=== PATIENT | male | born 1965 | race American Indian/Alaskan Native ===

== ENCOUNTER 2019-07-25 07:26 | Emergency (ER) | payer OTHER ==
[2019-07-25 07:33] VITALS: BP 131/91
[2019-07-25] MEDS ORDERED: ACETAMINOPHEN 500 MG TAB PO ONE (08:46)
--- NOTE | 2019-07-25 08:58 | Emergency Department Report ---
ED Head Trauma HPI - General Chief complaint: Head Injury Stated complaint: HEAD INJURY Time Seen by Provider: 07/25/19 08:35 Source: patient Mode of arrival: Ambulatory Limitations: No Limitations - History of Present Illness Initial comments: This is a 54-year-old male nontoxic, well nourished in appearance, no acute signs of distress presents to the ED with c/o of acute headache and neck pain x3 days. Patient stated that 3 days ago while he was working a heavy wall panel fell on his occipital lobe area. Patient denies any loss of consciousness. Patient stated also has slight dizziness. Patient describes headache as diffuse with level of 8 out of 10. Relieved with Aleve but comes back. Patient denies thunderclap headache. Patient denies any radiation of pain. Patient denies any visual changes. Patient denies worse headache. Patient denies any numbness, tingling, fever, chills, nausea, vomiting, chest pain, shortness of breath, sti ff neck. Patient denies facial drooping or one sided weakness. Patient denies any radiation of pain. Patient denies any allergies. Denies PMH. MD Complaint: head injury, head pain, other (neck pain) -: days(s) (3) Mechanism of Injury: work related injury Location: occipital Loss of Consciousness: no Previous Trauma to this Area: No Place: work Radiation: none Severity: mild Severity scale (0 -10): 8 Quality: aching Consistency: intermittent Other Injuries: none Associated Symptoms: neck pain. denies: confusion, amnesia, repetitive questioning, vision changes, nausea, vomiting, vertigo, syncope, numbness, weakness, tingling - Related Data Previous Rx's Medication Instructions Recorded Last Taken Type Butalb/Acetaminophen/Caffeine 1 cap PO Q8HR PRN #12 cap 07/25/19 Unknown Rx [Fioricet 50-300-40 mg CAP] Allergies/Adverse reactions: Allergies Allergy/AdvReac Type Severity Reaction Status Date / Time No Known Allergies Allergy Unverified 07/25/19 07:33 ED Review of Systems ROS: Stated complaint: HEAD INJURY Other details as noted in HPI Constitutional: denies: chills, fever Eyes: denies: eye pain, eye discharge, vision change ENT: denies: ear pain, throat pain Respiratory: denies: cough, shortness of breath, wheezing Cardiovascular: denies: chest pain, palpitations Endocrine: no symptoms reported Gastrointestinal: denies: abdominal pain, nausea, diarrhea Genitourinary: denies: urgency, dysuria Musculoskeletal: denies: back pain, joint swelling, arthralgia Skin: denies: rash, lesions Neurological: headache. denies: weakness, paresthesias Psychiatric: denies: anxiety, depression Hematological/Lymphatic: denies: easy bleeding, easy bruising ED Past Medical Hx - Past Medical History Previous Medical History?: Yes Hx Hypertension: Yes - Surgical History Past Surgical History?: No - Social History Smoking Status: Former Smoker Substance Use Type: None - Medications Home Medications: Home Medications Medication Instructions Recorded Confirmed Last Taken Type Butalb/Acetaminophen/Caffeine 1 cap PO Q8HR PRN #12 cap 07/25/19 Unknown Rx [Fioricet 50-300-40 mg CAP] ED Physical Exam - General Limitations: No Limitations General appearance: alert, in no apparent distress - Head Head exam: Present: atraumatic, normocephalic - Eye Eye exam: Present: normal appearance, PERRL, EOMI - Neck Neck exam: Present: normal inspection, full ROM. Absent: tenderness, meningismus, lymphadenopathy - Extremities Exam Extremities exam: Present: normal inspection, full ROM, normal capillary refill. Absent: tenderness - Back Exam Back exam: Present: normal inspection, full ROM, paraspinal tenderness (left sided cervical paraspinal). Absent: tenderness, CVA tenderness (R), CVA tenderness (L), muscle spasm, vertebral tenderness, rash noted - Neurological Exam Neurological exam: Present: alert, oriented X3, normal gait - Expanded Neurological Exam Expanded Patient oriented to: Present: person, place, time Cranial nerves: EOM's Intact: Normal, Facial Sensation: Normal Cerebellar function: Finger to Nose: Normal Upper motor neuron: Sensory Extinction: Normal Motor strength exam: RUE: 5, LUE: 5, RLE: 5, LLE: 5 Best Eye Response (Brad): (4) open spontaneously Best Motor Response (Brad): (6) obeys commands Best Verbal Response (Brad): (5) oriented Stanton Total: 15 - Psychiatric Psychiatric exam: Present: normal affect, normal mood - Skin Skin exam: Present: warm, dry, intact, normal color. Absent: rash ED Course Vital Signs 07/25/19 07/25/19 07:29 08:53 Temperature 98.2 F Pulse Rate 82 Respiratory 18 18 Rate Blood Pressure 131/91 O2 Sat by Pulse 97 Oximetry - Reevaluation(s) Reevaluation #1: 07/25/19 08:58 Patient is speaking in full sentences with no signs of distress noted. - Medical Decision Making This is a 54-year-old male that presents with a head concussion. Patient is stable and was examined by me. CT scan of head and cervical spine has been obtained and dictated by radiologist unremarkable. Patient did receive treatment ER which stated that symptoms of pain is resolving subsided. Patient is notified of the CT results with no questions noted by the patient. Patient be treated with Fioricet. Patient is neurologically stable. Patient was instructed to Follow-up with a neurologist doctor in 3-5 days or if symptoms worsen and continue return to emergency room as soon as possible. At time of discharge, the patient does not seem toxic or ill in appearance. No acute signs of distress noted. Patient agrees to discharge treatment plan of care. No further questions noted by the patient. - NEXUS Criteria Focal neurological deficit present: No Midline spinal tenderness present: No Altered level of consciousness: No Intoxication present: No Distracting injury present: No NEXUS results: C-Spine can be cleared clinically by these results. Imaging is not required. Critical care attestation.: If time is entered above; I have spent that time in minutes in the direct care of this critically ill patient, excluding procedure time. ED Disposition Clinical Impression: Head concussion Qualifiers: Encounter type: initial encounter Loss of consciousness presence/duration: without LOC Qualified Code(s): S06.0X0A - Concussion without loss of consciousness, initial encounter Cervical muscle strain Qualifiers: Encounter type: initial encounter Qualified Code(s): S16.1XXA - Strain of musc le, fascia and tendon at neck level, initial encounter Disposition: - TO HOME OR SELFCARE Is pt being admited?: No Does the pt Need Aspirin: No Condition: Stable Instructions: Concussion (ED) Additional Instructions: Follow-up with a neurologist doctor in 3-5 days or if symptoms worsen and continue return to emergency room as soon as possible. Prescriptions: Butalb/Acetaminophen/Caffeine [Fioricet 50-300-40 mg CAP] 1 cap PO Q8HR PRN #12 cap PRN Reason: Headache Referrals: ADELAIDA BALDWIN MD [Primary Care Provider] - 3-5 Days PRIMARY CARE, [Referring] - 3-5 Days JENNY LING MD [Staff Physician] - 3-[address] [facility] [place] [Outside] - 3-5 Days [facility] [Outside] - 3-5 Days Forms: Work/School Release Form(ED)
--- NOTE | 2019-07-25 09:36 | Cat Scan Report ---
CT HEAD WITHOUT CONTRAST INDICATION / CLINICAL INFORMATION: headache/neck pain s/p direct trauma. Head injury about 48 hours prior to this study. TECHNIQUE: All CT scans at this location are performed using CT dose reduction for ALARA by means of automated e xposure control. COMPARISON: None available. FINDINGS: HEMORRHAGE: No evidence of intracranial hemorrhage or extra-axial fluid collection. EXTRA-AXIAL SPACES: Cortical sulci, sylvian fissures and basilar cisterns have an unremarkable appear ance. VENTRICULAR SYSTEM: Persistence of the cava septum pellucidum is incidentally noted. This is a common developmental variation. The ventricular system is of otherwise normal size and configuration. CEREBRAL PARENCHYMA: No areas of abnormal brain parenchymal attenuation are identified. There is no i ndication of recent infarction. MIDLINE SHIFT OR HERNIATION: There is no mass effect. CEREBELLUM / BRAINSTEM: Brainstem and cerebellum have an unremarkable appearance. INTRACRANIAL VESSELS:No abnormalities are identified on this noncontrast head CT. ORBITS: visualized portions of the orbits have an unremarkable appearance. SOFT TISSUES of HEAD: No significant abnormality. CALVARIUM: Evaluation of bone windows reveals no abnormalities. PARANASAL SINUSES / MASTOID AIR CELLS: Paranasal sinuses are free from inflammatory mucosal disease. Mastoid air cells are normally pneumatized. IMPRESSION: 1. No abnormalities are identified on head CT without contrast. Signer Name: Jeremías Maldonado MD Signed: 07/25/2019 9:31 AM Workstation Name: [id number]
--- NOTE | 2019-07-25 09:51 | Cat Scan Report ---
CT cervical spine spine without contrast INDICATION: headache/neck pain s/p direct trauma. TECHNIQUE: Axial imaging performed through the cervical spine without the use of contrast. Sagittal and coronal reconstructed images were also reviewed. All CT scans at this location are performed us ing CT dose reduction for ALARA by means of automated exposure control. COMPARISON: None FINDINGS: Alignment: Spinal alignment is normal. Bones: There is no acute osseous abnormality. Mild multilevel discogenic DJD is present. Soft tissues: No acute or significant incidental soft tissue abnormality. IMPRESSION: No acute abnormality. Signer Name: Migue Chase MD Signed: 07/25/2019 9:46 AM Workstation Name: [id number]
== END 2019-07-25 10:33 | disposition home or self-care (01) ==
LOC: ED 07:26
DX: S06.0X0A Concussion without loss of consciousness, initial encounter (principal); S16.1XXA Strain of muscle, fascia and tendon at neck level, initial encounter; I10 Essential (primary) hypertension; Z79.899 Other long term (current) drug therapy; Z87.891 Personal history of nicotine dependence; W22.8XXA Striking against or struck by other objects, initial encounter; Y93.89 Activity, other specified; Y92.69 Other specified industrial and construction area as the place of occurrence of the external cause; Y99.8 Other external cause status
CPT/HCPCS: 70450; 72125; 99283

== ENCOUNTER 2021-11-24 13:20 | Emergency (ER) | payer SELFPAY ==
[2021-11-24] MEDS ORDERED: ASPIRIN 81 MG TAB CHEW PO ONE (13:52)
--- NOTE | 2021-11-24 13:54 | Emergency Department Report ---
ED General Adult HPI - General Chief complaint: Chest Pain Stated complaint: CHEST PAIN/SHORTNESS OF BREATH Time Seen by Provider: 11/24/21 13:42 Source: patient Mode of arrival: Ambulatory Limitations: No Limitations - History of Present Illness Initial comments: Patient presents with a 2-day history of chest pain. He initially had some pain in the right shoulder. It has migrated to the right substernal area and left substernal area. He decided to come here today for evaluation. He also states that his blood pressures been higher than usual. 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 He is still eating salt but "does not go crazy." He has decreased caffeine use. Patient does not notice symptoms are exertional. He seems to think that they are worse when he is recumbent on his right side. He admits that he had difficulty sleeping last night. He does feel somewhat short of breath but states that he feels better when he is upright. Again, symptoms are not exertional. He does not have any radiation of this discomfort into the extremities. He has not had nausea. He has no recent travel or trauma. He has never had symptoms like this before. He does not have known heart disease. He does take lisinopril and states that his blood pressure has been elevated recently. - Related Data Previous Rx's Medication Instructions Recorded Last Taken Type Butalb/Acetaminophen/Caffeine 1 cap PO Q8HR PRN #12 cap 07/25/19 Unknown Rx [Fioricet 50-300-40 mg CAP] cloNIDine [Catapres] 0.1 mg PO BID PRN #20 tablet 11/24/21 Unknown Rx Allergies Allergy/AdvReac Type Severity Reaction Status Date / Time No Known Allergies Allergy Unverified 07/25/19 07:33 ED Review of Systems ROS: Stated complaint: CHEST PAIN/SHORTNESS OF BREATH Other details as noted in HPI Comment: All other systems reviewed and negative Constitutional: denies: fever Eyes: denies: vision change ENT: denies: throat pain Respiratory: denies: cough Cardiovascular: as per HPI Endocrine: denies: unexplained weight loss Gastrointestinal: denies: abdominal pain Genitourinary: denies: dysuria Musculoskeletal: denies: back pain Skin: denies: rash Neurological: denies: headache Hematological/Lymphatic: denies: easy bruising ED Past Medical Hx - Past Medical History Hx Hypertension: Yes - Family History Family history: hypertension - Social History Smoking Status: Former Smoker Substance Use Type: None - Medications Home Medications: Home Medications Medication Instructions Recorded Confirmed Last Taken Type Butalb/Acetaminophen/Caffeine 1 cap PO Q8HR PRN #12 cap 07/25/19 Unknown Rx [Fioricet 50-300-40 mg CAP] cloNIDine [Catapres] 0.1 mg PO BID PRN #20 tablet 11/24/21 Unknown Rx ED Physical Exam - General Limitations: No Limitations, Other (Pulse ox noted and normal) General appearance: alert, in no apparent distress - Head Head exam: Present: atraumatic, normocephalic - Eye Eye exam: Present: normal appearance, EOMI - ENT ENT exam: Present: normal orophraynx, normal external ear exam - Neck Neck exam: Present: normal inspection. Absent: meningismus - Respiratory Respiratory exam: Present: normal lung sounds bilaterally. Absent: respiratory distress - Cardiovascular Cardiovascular Exam: Present: regular rate, normal rhythm - GI/Abdominal GI/Abdominal exam: Present: soft. Absent: distended - Extremities Exam Extremities exam: Present: normal capillary refill. Absent: calf tenderness - Back Exam Back exam: Absent: CVA tenderness (R), CVA tenderness (L) - Neurological Exam Neurological exam: Present: alert, oriented X3, CN II-XII intact, normal gait. Absent: motor sensory deficit - Psychiatric Psychiatric exam: Present: normal affect, normal mood - Skin Skin exam: Present: warm ED Course Vital Signs 11/24/21 13:24 Temperature 97.7 F Pulse Rate 98 H Respiratory 16 Rate Blood Pressure 178/121 [Left] - Reevaluation(s) Reevaluation #1: 11/24/21 13:54 EKG was noted. IV labs ordered. Old records reviewed. Reevaluation #2: 11/24/21 15:49 And x-ray were noted. Patient was discharged. ED Medical Decision Making - Lab Data Result diagrams: 11/24/21 14:01 11/24/21 14:01 Rhythm strip: Normal sinus rhythm without ectopy per monitor observe 10 seconds. - EKG Data -: EKG Interpreted by Al - EKG Data 11/24/21 14:12 1332-EKG shows normal sinus rhythm 80. Intervals are normal including a QRS of 86 and a QT corrected of 428. Patient has no ST elevation to suggest STEMI. There is no ST depression suggestive of ischemia. Patient has no reciprocal changes. - Radiology Data Radiology results: report reviewed - Medical Decision Making Patient present with chest pain of unclear allergy. There is no evidence of STEMI or NSTEMI. Heart score is 1. He does not require emergent evaluation or admission. There is no radiographic evidence of pneumonia or pneumothorax. He does not appear to be septic or toxic. There is no wide mediastinum or pulse deficit that would suggest aortic dissection. He has no pleuritic component. There is no risk factor for PE. He was treated medically and referred for outpatient evaluation and follow-up. Critical Care Time: No Critical care attestation.: If time is entered above; I have spent that time in minutes in the direct care of this critically ill patient, excluding procedure time. ED Disposition Clinical Impression: Substernal chest pain Disposition: HOME / SELF CARE / HOMELESS Is pt being admited?: No Condition: Stable Instructions: Nonspecific Chest Pain, Adult, Pain Without a Known Cause Additional Instructions: Drink plenty water. Return for problems. Follow-up with your regular doctor. Avoid salt. Take an aspirin every day. Prescriptions: cloNIDine [Catapres] 0.1 mg PO BID PRN #20 tablet PRN Reason: sbp >170 Referrals: PRIMARY CARE, [Primary Care Provider] - 3-5 Days JENNY DEL ROSARIO MD [Staff Physician] - 3-5 Days JENNY PEARL MD [Staff Physician] - 3-5 Days
[2021-11-24 14:36] LABS: Hemoglobin 13.8 gm/dl (11.8-15.2); Mean Corpuscular HGB Conc 34 % (32-34); Mean Corpuscular Volume 95 fl (84-94); Platelet Count 123 K/mm3 (140-440); Red Blood Count 4.23 M/mm3 (3.65-5.03); Red Cell Distribution Width 14.3 % (13.2-15.2)
[2021-11-24 14:42] LABS: BUN/Creatinine Ratio 12; Blood Urea Nitrogen 13 mg/dL (9-20); Calcium 8.5 mg/dL (8.4-10.2); Hemolysis Index 18
--- NOTE | 2021-11-24 14:51 | XRay Report ---
XR chest routine 2V INDICATION / CLINICAL INFORMATION: cp. COMPARISON: None available. FINDINGS: SUPPORT DEVICES: None. HEART /PULMONARY VASCULATURE: No significant abnormality. LUNGS / PLEURA: No significant pulmonary or pleural abnormality. No pneumothorax. ADDITIONAL FINDINGS: No significant additional findings. IMPRESSION: 1. No acute findings. Signer Name: Riki Garces MD Signed: 11/24/2021 2:47 PM Workstation Name: [id number]
[2021-11-24] MEDS ORDERED: cloNIDine 0.2 MG TAB PO ONE (16:45)
[2021-11-24 16:59] VITALS: BP 165/115
--- NOTE | 2021-11-26 13:10 | Electrocardiograph Report ---
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
== END 2021-11-24 17:06 | disposition home or self-care (01) ==
LOC: ED 13:20
DX: R07.2 Precordial pain (principal); I10 Essential (primary) hypertension; Z87.891 Personal history of nicotine dependence
CPT/HCPCS: 36415; 71046; 80048; 84484; 85027; 93005; 93010; 99283